=== PATIENT | male | born 1995 | race Hispanic/Latino ===

== ENCOUNTER 2017-11-01 19:02 | Emergency (ER) | payer SELFPAY ==
[~2017-11-01] VITALS: Ht 172.7 cm; Wt 69.2 kg
[2017-11-01 19:18] VITALS: BP 130/69
[2017-11-01] MEDS ORDERED: AMOXICILLIN500 MG PO (19:26)
== END 2017-11-01 19:40 | disposition home or self-care (01) | DRG 153 ==
LOC: ED 19:02
DX: J02.9 Acute pharyngitis, unspecified (principal); J03.90 Acute tonsillitis, unspecified; H66.91 Otitis media, unspecified, right ear

== ENCOUNTER 2021-03-25 17:13 | Emergency (ER) | payer SELFPAY ==
[~2021-03-25] VITALS: Ht 172.7 cm; Wt 75.0 kg
[~2021-03-25 17:13] MED LIST: AMOXICILLIN500 MG PO
[2021-03-25 18:26] VITALS: BP 121/75
== END 2021-03-25 20:01 | disposition left against medical advice (07) | DRG 951 ==
LOC: ED 17:13 → LWOBS 20:01 → ED 20:01
DX: Z91.19 Patient's noncompliance with other medical treatment and regimen (principal)